=== PATIENT | male | born 1940 | race Caucasian/White ===

== ENCOUNTER 2017-06-12 05:26 | Inpatient (IN) | payer OTHER ==
[~2017-06-12] VITALS: Ht 182.9 cm; Wt 112.0 kg
[~2017-06-12 05:26] MED LIST: AMLODIPINE BESYL5 MG PO; AMLODIPINE-BEN1 EAC3 PO; ATORVASTATIN CA80 MG PO; Aspirin E.C. PO; Augmentin PO; BENAZEPRIL HCL20 MG PO; BRILINTA90 MG PO; Bactrim,Septra DS 80 PO; Coumadin Protocol PO; Coumadin,Jantoven PO; ENDOCET 5-3251 EACH PO; FENOFIBRATE145 M1 PO; Feosol PO; ISOSORBIDE MONO30 MG PO; LOPRESSOR25 MG PO; Lotensin PO; NITROSTAT0.4 MG SL; Norvasc PO; Nucynta PO; Senokot S,Pericolace PO; TRICOR145 MG PO; TYLENOL REGULA325 MG PO; Theragran PO; Tricor PO; Vicodin,Norco 5/325 PO; celeBREX PO
[2017-06-12 06:10] LABS: CREATININE 1.3 mg/dL (0.6-1.3); POTASSIUM 3.4 mEq/L (3.7-5.4)
[2017-06-12 06:13] LABS: BASOPHIL COUNT 0.1 K/uL (0-0.1); EOSINOPHIL COUNT 0.1 K/uL (0-0.3); HEMATOCRIT 43.5 % (38.0-50.0); IMMATURE GRANULOCYTE (%) 0.6 % (0.0-0.7); IMMATURE GRANULOCYTE COUNT 0.1 K/uL; INSTRUMENT ABS NEUTROPHIL CT 4.4 K/uL; LYMPHOCYTE COUNT 5.5 K/uL (1.0-2.8); MCH 30.3 PG (29.0-34.0); MCHC 31.3 G/DL (30.0-36.0); MCV 96.9 FL (86-99); MEAN PLAT.VOLUME 9.4 uM^3 (9.0-12.4); MONOCYTE (%) 8.7 % (3-12); NEUTROPHIL COUNT 4.4 K/uL (1.8-6.4); NRBC (%) 0.2 /100 WBC (0-0); PLATELET COUNT 126 K/uL (156-360); RBC DIS.WIDTH-CV 15.2 % (11.8-14.6); RBC DIS.WIDTH-SD 54.4 % (39-53); RED BLOOD COUNT 4.49 M/uL (4.00-5.50); WHITE BLOOD COUNT 11.1 K/uL (4.1-10.2)
[2017-06-12 06:18] LABS: INTER. NORMALIZED RATIO 1.1; PROTHROMBIN TIME 12.8 SEC (10.2-12.9)
[2017-06-12 06:22] LABS: CHLORIDE 115 mEq/L (99-109); POTASSIUM 3.2 mEq/L (3.7-5.4); SODIUM 147 mEq/L (136-147)
[2017-06-12 06:24] LABS: GLUCOSE 235 mg/dL (70-99)
[2017-06-12 06:25] LABS: ANION GAP 19 MEQ/L (2-14)
[2017-06-12 06:26] LABS: TOTAL BILIRUBIN 0.5 mg/dL (0.0-1.0)
[2017-06-12 06:27] LABS: ALKALINE PHOSPHATASE 72 IU/L (3-129)
[2017-06-12 06:28] LABS: GFR ESTIMATE (CALCULATED) 57 mL/min/ (58.99-99999)
[2017-06-12 06:29] LABS: UREA NITROGEN (BUN) 17 mg/dL (9-23)
[2017-06-12 06:31] LABS: TROP-I INTERPRETATION NEGATIVE; TROPONIN-I 0.11 ng/mL (0.0-0.30)
[2017-06-12 07:57] LABS: LIPASE 23 U/L (1.0-51.0)
[2017-06-12 08:34] LABS: SITE LR
[2017-06-12 08:35] LABS: COMMENTS - BLOOD GASES A+C+; DEVICE VENT; FI02 100 %; MECHANICAL RATE 18 resp/min; MODE AC/VC; PCO2 90 mm Hg (35-45); PEEP 10 CM/H20; PO2 69 mm Hg (80-100); TIDAL VOLUME 400 ML; TOTAL RESP RATE 18 resp/min; pH 6.92 (7.35-7.45)
[2017-06-12 08:36] LABS: CARBOXY HGB 1.4 % (0-5); HEMOGLOBIN 13.1 (12.5-16.6); METHEMOGLOBIN 0.4 % (0-1.5)
[2017-06-12 09:48] LABS: BASOPHIL COUNT 0.1 K/uL (0-0.1); EOSINOPHIL COUNT 0.2 K/uL (0-0.3); HEMATOCRIT 45.6 % (38.0-50.0); IMMATURE GRANULOCYTE (%) 3.7 % (0.0-0.7); IMMATURE GRANULOCYTE COUNT 0.9 K/uL; INSTRUMENT ABS NEUTROPHIL CT 15.7 K/uL; LYMPHOCYTE COUNT 5.2 K/uL (1.0-2.8); MCH 30.7 PG (29.0-34.0); MCHC 30.7 G/DL (30.0-36.0); MONOCYTE (%) 4.9 % (3-12); MONOCYTE COUNT 1.2 K/uL (0-0.8); NEUTROPHIL (%) 67.5 % (45-76); NEUTROPHIL COUNT 15.7 K/uL (1.8-6.4); NRBC (%) 0.1 /100 WBC (0-0); PLATELET COUNT 156 K/uL (156-360); RBC DIS.WIDTH-CV 15.4 % (11.8-14.6); RED BLOOD COUNT 4.56 M/uL (4.00-5.50); WHITE BLOOD COUNT 23.3 K/uL (4.1-10.2)
[2017-06-12 09:59] LABS: CHLORIDE 115 mEq/L (99-109); SODIUM 144 mEq/L (136-147)
[2017-06-12 10:00] LABS: POTASSIUM 4.3 mEq/L (3.7-5.4)
[2017-06-12 10:02] LABS: GLUCOSE 276 mg/dL (70-99)
[2017-06-12 10:03] LABS: ANION GAP 17 MEQ/L (2-14)
[2017-06-12 10:05] LABS: ALKALINE PHOSPHATASE 94 IU/L (3-129); GFR ESTIMATE (CALCULATED) 48 mL/min/ (58.99-99999); TOTAL BILIRUBIN 0.7 mg/dL (0.0-1.0)
[2017-06-12 10:23] LABS: INTER. NORMALIZED RATIO > 4.5
[2017-06-12 10:25] LABS: UREA NITROGEN (BUN) 17 mg/dL (9-23)
[2017-06-12 10:40] VITALS: BP 96/81
[2017-06-12 11:04] LABS: FIBRINOGEN 60 mg/dL (150-450)
== END 2017-06-12 11:06 | DRG 208 ==
LOC: EME → EDBD 05:26 → EDOF 09:10 → CANRESERV 09:11 → ENRESERV 09:11 → EDOF 11:06
PROVIDERS: Emergency Medicine
DX: I26.99 Other pulmonary embolism without acute cor pulmonale (principal); J96.01 Acute respiratory failure with hypoxia; G93.40 Encephalopathy, unspecified; E87.2 Acidosis; I46.8 Cardiac arrest due to other underlying condition; R55 Syncope and collapse; I10 Essential (primary) hypertension; E78.5 Hyperlipidemia, unspecified; Z87.442 Personal history of urinary calculi
CPT/HCPCS: 36600; 70450; 71010; 71275; 74177; 80047; 80053; 81003; 82803; 83605; 83690; 84484; 85025; 85025 91; 85384; 85610; 85730; 86850; 86900; 86901; 93005; 94002; C1751; C9113; J0171; J0461; J2405; J2997; J3010; J7030; J7050; J7070